=== PATIENT | female | born 1995 | race Hispanic/Latino ===

== ENCOUNTER 2019-01-07 21:26 | Emergency (ER) | payer OTHER ==
[~2019-01-07] VITALS: Ht 167.6 cm; Wt 65.3 kg
--- OUTSIDE RECORDS SUMMARY | 2019-01-07 21:29 | XMS REPORT ---
Author Author [facility] Address Unknown Phone Unavailable Care Team Providers Care Mechanical Integrity Engineer Name Role Phone YOANDY JIMENEZ Unavailable Unavailable FRANTZ CHARLES Unavailable Unavailable Problems This patient has no known problems. Allergies, Adverse Reactions, Alerts This patient has no known allergies or adverse reactions. Medications This patient has no known medications. Results Test Description Test Time Test Comments Text Results Atomic Results Result Comments TACROLIMUS LEVEL 2018-04-19 13:16:00 TACROLIMUS BLOOD (BETHAKER) (test gmpe=691) 5.7 ng/mL 10.0-20.0 RAD, CHEST, 2 [id number] 12:55:00Referring: Dr. Carlos Vargas for Exam:- >transplanted liver - routine screening right upper quadrant discomfortFINAL REPORT TECHNIQUE: Frontal and lateral views of the chest. INDICATION: transplanted liver - routine screening right upper quadrant d iscomfort. COMPARISON: None. FINDINGS: LINES/TUBES: None. LUNGS: The lungs are well inflated and clear. No consolidation or pulmonary edema. PLEURA: No pleural effusion or pneumothorax. HEART AND MEDIASTINUM: The cardiomediastinal silhouet te is within normal limits. SOFT TISSUES AND BONES: However convex curvature of the lower thoracic spine. IMPRESSION:No acute cardiopulmonary abnormalities. Si gned: Dyllan Davenport MDReplia Verified Date/Time: 04/19/2018 12:55:54 Reading Locat ion: OQMT 10th [facility] [place] Radiology Reading Room U/S, ABDOMINAL, WITH [id number] 11:43:00Referring: Dr. Carlos Vargas for Exam:->transplanted liver - portal thrombosis- right upper quandrant discomfortFINAL REPORT TECHNIQUE: Grayscale ultrasound of the abdomen with color Doppler and spectral Doppler ultrasound of the portal/hepatic vasculature. INDICATION: transplanted liver - portal thrombosis- right upper quandrant discomfort. COMPARISON: Ultrasound from 04/01/2017. FINDINGS: LIVER: Smooth liver contour. No focal liver lesions. HEPATIC VASCULATURE: The intrahepatic portal veins are patent. There is retained oral vessels at the hepatic hilum. The hepatic arteries are patent with normal flow velocities, resistive indices, and waveforms. The hepatic veins and confluence are patent. The hepatic arterial resistive indices range from 0.7-0.8. Acceleration time in the proper hepatic artery is 0.05 seconds. There are several right retroperitoneal varices as well as varices in the gallbladder fossa. BILIARY:Gallbladder: No gallstones or sludge. No g allbladder wall thickening, pericholecystic fluid, or distention. Negative sonog raphic Harrell sign.Common bile duct measures 0.4 cm, within normal limits. No in trahepatic biliary ductal dilatation. PANCREAS: Incompletely visualized due to o verlying bowel gas. The partially visualized pancreatic body is normal. SPLEEN: No splenomegaly. The spleen measures 15.4 cm PERITONEUM: No free fluid. KIDNEYS: Normal in size bilaterally. No hydronephrosis. No sonographically evident solid mass lesion. MIDLINE VASCULATURE: The visualized inferior vena cava is patent. The maximum visualized aortic diameter is 1.7 cm. Splenic artery and vein are p atent. IMPRESSION: 1.The resistive index of the proper hepatic artery is mildly elevated, a nonspecific finding. 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 There are prominen t collaterals in the gallbladder fossa and right retroperitoneal region. Signed: Dyllan Davenport MDReport Verified Date/Time: 04/19/2018 11:43:04 Reading Location: [address] Radiology Reading Room W/PLT COUNT & AUTO [id number] 09:52:00* Test Item Value Reference Range Comments WHITE BLOOD CELL COUNT (BEAKER) (test muht=466) 3.8 K/ L 3.5-10.5 RED BLOOD CELL COUNT (BEAKER) (test rybd=310) 4.34 M/ L 3.93-5.22 HEMOGLOBIN (BEAKER) (test ytem=034) 13.1 GM/DL 11.2-15.7 HEMATOCRIT (BEAKER) (test pznz=238) 39.4 % 34.1-44.9 MEAN CORPUSCULAR VOLUME (BEAKER) (test wywh=541) 90.8 fL 79.4-94.8 MEAN CORPUSCULAR HEMOGLOBIN (BEAKER) (test njzy=240) 30.2 pg 25.6-32.2 MEAN CORPUSCULAR HEMOGLOBIN CONC (BEAKER) (test lbzt=491) 33.2 GM/DL 32.2-35.5 RED CELL DISTRIBUTION WIDTH (BEAKER) (test stpg=633) 12.9 % 11.7-14.4 PLATELET COUNT (BEAKER) (test uccr=427) 136 K/CU MM 150-450 MEAN PLATELET VOLUME (BEAKER) (test kiit=711) 10.0 fL 9.4-12.3 NUCLEATED RED BLOOD CELLS (BEAKER) (test ogdg=007) 0 /100 WBC 0-0 NEUTROPHILS RELATIVE PERCENT (BEAKER) (test szsl=900) 54 % LYMPHOCYTES RELATIVE PERCENT (BEAKER) (test qfor=470) 25 % MONOCYTES RELATIVE PERCENT (BEAKER) (test vtaj=585) 9 % EOSINOPHILS RELATIVE PERCENT (BEAKER) (test teqq=116) 11 % BASOPHILS RELATIVE PERCENT (BEAKER) (test mbag=660) 1 % NEUTROPHILS ABSOLUTE COUNT (BEAKER) (test uzkm=507) 2.04 K/ L 1.56-6.13 LYMPHOCYTES ABSOLUTE COUNT (BEAKER) (test gqfb=868) 0.96 K/ L 1.18-3.74 MONOCYTES ABSOLUTE COUNT (BEAKER) (test deyp=763) 0.35 K/ L 0.24-0.36 EOSINOPHILS ABSOLUTE COUNT (BEAKER) (test bmqt=781) 0.40 K/ L 0.04-0.36 BASOPHILS ABSOLUTE COUNT (BEAKER) (test qnxc=879) 0.04 K/ L 0.01-0.08 IMMATURE GRANULOCYTES-RELATIVE PERCENT (BEAKER) (test ejeh=9416) 0 % 0-1 HEPATIC FUNCTION [id number] 09:51:00* Test Item Value Reference Range Comments TOTAL PROTEIN (BEAKER) (test xoum=233) 7.4 gm/dL 6.0-8.3 ALBUMIN (BEAKER) (test vrno=3196) 3.8 g/dL 3.5-5.0 BILIRUBIN TOTAL (BEAKER) (test janx=499) 1.5 mg/dL 0.2-1.2 BILIRUBIN DIRECT (BEAKER) (test foct=060) 0.6 mg/dL 0.1-0.5 ALKALINE PHOSPHATASE (BEAKER) (test utzr=914) 99 U/L 40-150 AST (SGOT) (BEAKER) (test swsb=167) 28 U/L 5-34 ALT (SGPT) (BEAKER) (test vsdn=583) 23 U/L 6-55 BASIC METABOLIC [id number] 09:51:00* Test Item Value Reference Range Comments SODIUM (BEAKER) (test hqlf=954) 136 meq/L 136-145 POTASSIUM (BEAKER) (test zalw=371) 4.2 meq/L 3.5-5.1 CHLORIDE (BEAKER) (test ewrm=153) 106 meq/L 98-107 CO2 (BEAKER) (test pqus=378) 22 meq/L 22-29 BLOOD UREA NITROGEN (BEAKER) (test dkdt=003) 10 mg/dL 7-21 CREATININE (BEAKER) (test sfnu=262) 0.52 mg/dL 0.57-1.25 GLUCOSE RANDOM (BEAKER) (test fyoe=240) 141 mg/dL 70-105 CALCIUM (BEAKER) (test rzhn=649) 9.1 mg/dL 8.4-10.2 EGFR (BEAKER) (test nqli=8969) 145 mL/min/1.73 sq m ESTIMATED GFR IS NOT ACCURATE CREATININE CLEARANCE IN PREDICTING GLOMERULAR FILTRATION RATE. ESTIMATED GFR IS NOT APPLICABLE FOR DIALYSIS PATIENTS. PROTHROMBIN [id number] 09:27:00* Test Item Value Reference Range Comments PROTIME (BEAKER) (test nanh=934) 14.3 seconds 11.7-14.7 INR (BEAKER) (test akdm=490) 1.1 <=5.9 RECOMMENDED COUMADIN/WARFARIN INR THERAPY RANGESSTANDARD DOSE: 2.0 - 3.0 Inclu tiffanie: PROPHYLAXIS for venous thrombosis, systemic embolization; TREATMENT for betty ous thrombosis and/or pulmonary embolus.HIGH RISK: Target INR is 2.5-3.5 for pat ients with mechanical heart valves.TACROLIMUS [id number] 13:54:00* Test Item Value Reference Range Comments TACROLIMUS BLOOD (BEAKER) (test uupl=286) 7.5 ng/mL 10.0-20.0 CBC W/PLT COUNT & AUTO [id number] 11:15:00* Test Item Value Reference Range Comments WHITE BLOOD CELL COUNT (BEAKER) (test cbwr=565) 4.1 K/ L 3.5-10.5 RED BLOOD CELL COUNT (BEAKER) (test omme=420) 4.46 M/ L 3.93-5.22 HEMOGLOBIN (BEAKER) (test nnii=746) 13.5 GM/DL 11.2-15.7 HEMATOCRIT (BEAKER) (test nwps=965) 40.3 % 34.1-44.9 MEAN CORPUSCULAR VOLUME (BEAKER) (test lsow=679) 90.4 fL 79.4-94.8 MEAN CORPUSCULAR HEMOGLOBIN (BEAKER) (test ltgo=197) 30.3 pg 25.6-32.2 MEAN CORPUSCULAR HEMOGLOBIN CONC (BEAKER) (test povs=846) 33.5 GM/DL 32.2-35.5 RED CELL DISTRIBUTION WIDTH (BEAKER) (test clnl=203) 13.2 % 11.7-14.4 PLATELET COUNT (BEAKER) (test zmyw=909) 151 K/CU MM 150-450 MEAN PLATELET VOLUME (BEAKER) (test nrdl=943) 10.1 fL 9.4-12.3 NUCLEATED RED BLOOD CELLS (BEAKER) (test gipv=242) 0 /100 WBC 0-0 NEUTROPHILS RELATIVE PERCENT (BEAKER) (test nnpi=221) 57 % LYMPHOCYTES RELATIVE PERCENT (BEAKER) (test ucsx=886) 24 % MONOCYTES RELATIVE PERCENT (BEAKER) (test ljvj=679) 8 % EOSINOPHILS RELATIVE PERCENT (BEAKER) (test msrr=903) 10 % BASOPHILS RELATIVE PERCENT (BEAKER) (test wune=842) 1 % NEUTROPHILS ABSOLUTE COUNT (BEAKER) (test ardk=643) 2.30 K/ L 1.56-6.13 LYMPHOCYTES ABSOLUTE COUNT (BEAKER) (test aavl=671) 0.98 K/ L 1.18-3.74 MONOCYTES ABSOLUTE COUNT (BEAKER) (test mlkv=382) 0.31 K/ L 0.24-0.36 EOSINOPHILS ABSOLUTE COUNT (BEAKER) (test dqsr=127) 0.41 K/ L 0.04-0.36 BASOPHILS ABSOLUTE COUNT (BEAKER) (test yydi=165) 0.05 K/ L 0.01-0.08 IMMATURE GRANULOCYTES-RELATIVE PERCENT (BEAKER) (test xibi=8089) 1 % 0-1 [id number] 11:09:00* Test Item Value Reference Range Comments PHOSPHORUS (BEAKER) (test xmsv=357) 2.9 mg/dL 2.3-4.7 [id number] 11:09:00* Test Item Value Reference Range Comments MAGNESIUM (BEAKER) (test pfik=891) 1.9 mg/dL 1.6-2.6 BASIC METABOLIC [id number] 11:09:00* Test Item Value Reference Range Comments SODIUM (BEAKER) (test rqqv=564) 139 meq/L 136-145 POTASSIUM (BEAKER) (test amgg=305) 4.4 meq/L 3.5-5.1 CHLORIDE (BEAKER) (test roas=216) 107 meq/L 98-107 CO2 (BEAKER) (test cnso=557) 28 meq/L 22-29 BLOOD UREA NITROGEN (BEAKER) (test aqvq=989) 13 mg/dL 7-21 CREATININE (BEAKER) (test vbdt=040) 0.55 mg/dL 0.57-1.25 GLUCOSE RANDOM (BEAKER) (test mrwa=362) 133 mg/dL 70-105 CALCIUM (BEAKER) (test puec=888) 9.5 mg/dL 8.4-10.2 EGFR (BEAKER) (test rjee=6443) 136 mL/min/1.73 sq m ESTIMATED GFR IS NOT ACCURATE CREATININE CLEARANCE IN PREDICTING GLOMERULAR FILTRATION RATE. ESTIMATED GFR IS NOT APPLICABLE FOR DIALYSIS PATIENTS. HEPATIC FUNCTION [id number] 11:09:00* Test Item Value Reference Range Comments TOTAL PROTEIN (BEAKER) (test wgox=192) 8.2 gm/dL 6.0-8.3 ALBUMIN (BEAKER) (test pwtu=6347) 4.2 g/dL 3.5-5.0 BILIRUBIN TOTAL (BEAKER) (test echc=801) 1.7 mg/dL 0.2-1.2 BILIRUBIN DIRECT (BEAKER) (test hqow=611) 0.7 mg/dL 0.1-0.5 ALKALINE PHOSPHATASE (BEAKER) (test ntjg=921) 115 U/L 40-150 AST (SGOT) (BEAKER) (test kreb=299) 30 U/L 5-34 ALT (SGPT) (BEAKER) (test dcnh=042) 26 U/L 6-55 PROTHROMBIN [id number] 10:54:00* Test Item Value Reference Range Comments PROTIME (BEAKER) (test ldpv=356) 14.0 seconds 11.7-14.7 INR (BEAKER) (test aeno=449) 1.0 <=5.9 RECOMMENDED COUMADIN/WARFARIN INR THERAPY RANGESSTANDARD DOSE: 2.0 - 3.0 Inclu tiffanie: PROPHYLAXIS for venous thrombosis, systemic embolization; TREATMENT for betty ous thrombosis and/or pulmonary embolus.HIGH RISK: Target INR is 2.5-3.5 for pat ients with mechanical heart valves.U/S, ABDOMINAL, WITH [id number] 11:52:00Referring: Dr. Carlos Vargas for Exam:->history of liver transplant and PVTFINAL REPORT TECHNIQUE: Grayscale ultrasound of the abdomen with color Doppler and spectral Doppler ultrasound of the portal/hepatic vasculature. INDICATION: 21-year-old woman with history of liver transplant and portal vein thrombus. COMPARISON: Abdomen ultrasound 04/23/2016. FINDINGS: LIVER: Prior orthotopic liver transportation. Smooth liver contour. Echogenicity is within normal limits. No focal liver lesions. HEPATIC VASCULATURE: Main portal vein measures 0.6 cm in diameter with unchanged suspected cavernous transformation. Portal veins are patent with normal waveform and directionality. Flow velocity in the main portal vein is within normal limits. The hepatic arteries are patent. Resistive index in the proper hepatic artery is slightly elevated at 0.8. Acceleration time in the proper hepatic artery is within normal limits. Resistive indices in the right and left hepatic arteries are within normal limits. The hepatic veins and confluence are patent. BILIARY:Gallbladder: Prior cholecystectomy.Common bile duct measures 0.5 cm, within normal limits. No intrahepatic biliary ductal dilatation. PANCREAS: Visualized portions of the pancreas are unremarkable. SPLEEN: Enlarged, measuring 17.3 cm. PERITONEUM: No free fluid. KIDNEYS: The right kidney measures 8.8 cm on the left kidney measures 9.4 cm. No hydronephrosis. No sonographically evident solid mass lesion. MIDLINE VASCULATURE: The visualized inferior vena cava is patent. The maximum visualized aortic diameter is 1.8 cm. Splenic artery and vein are patent. Collateral vessels adjacent to the spleen. IMPRESSION:Unremarkable appearance of the transplant liver. 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 Splenomegaly. Slightly elevated resistive index in the proper hepatic a rtery, nonspecific. Signed: Michael Blevins MDReport Verified Date/Time: 2017 11:52:03 Reading Location: [address] Radiology Reading Room [facility] signed by: MICHAEL BLEVINS MD on 04/01/2017 11:52 AM HEMOGLOBIN A1C 2017-03-12 14:21:00* Test Item Value Reference Range Comments HEMOGLOBIN A1C (BEAKER) (test vdpl=087) 4.6 % 4.3-6.1 TACROLIMUS [id number] 14:19:00* Test Item Value Reference Range Comments TACROLIMUS BLOOD (BEAKER) (test gmfh=649) 5.9 ng/mL 10.0-20.0 HEPATITIS B SURFACE [id number] 13:54:00* Test Item Value Reference Range Comments HEPATITIS B SURFACE ANTIBODY (BEAKER) (test uatb=593) 715.2 mIU/mL <8.0 [id number] 12:54:00* Test Item Value Reference Range Comments MAGNESIUM (BEAKER) (test razd=760) 1.5 mg/dL 1.6-2.6 BASIC METABOLIC [id number] 12:54:00* Test Item Value Reference Range Comments SODIUM (BEAKER) (test wpzz=730) 138 meq/L 136-145 POTASSIUM (BEAKER) (test rbrg=338) 3.9 meq/L 3.5-5.1 CHLORIDE (BEAKER) (test azse=567) 109 meq/L 98-107 CO2 (BEAKER) (test yiqc=789) 23 meq/L 22-29 BLOOD UREA NITROGEN (BEAKER) (test ylov=606) 10 mg/dL 7-21 CREATININE (BEAKER) (test mjtc=606) 0.46 mg/dL 0.57-1.25 GLUCOSE RANDOM (BEAKER) (test ijpt=852) 112 mg/dL 70-105 CALCIUM (BEAKER) (test bmps=744) 9.0 mg/dL 8.4-10.2 EGFR (BEAKER) (test akrr=0795) 168 mL/min/1.73 sq m ESTIMATED GFR IS NOT ACCURATE CREATININE CLEARANCE IN PREDICTING GLOMERULAR FILTRATION RATE. ESTIMATED GFR IS NOT APPLICABLE FOR DIALYSIS PATIENTS. HEPATIC FUNCTION [id number] 12:54:00* Test Item Value Reference Range Comments TOTAL PROTEIN (BEAKER) (test rkgs=265) 7.9 gm/dL 6.0-8.3 ALBUMIN (BEAKER) (test ibuz=7094) 3.8 g/dL 3.5-5.0 BILIRUBIN TOTAL (BEAKER) (test swdu=939) 1.5 mg/dL 0.2-1.2 BILIRUBIN DIRECT (BEAKER) (test ncoq=940) 0.6 mg/dL 0.1-0.5 ALKALINE PHOSPHATASE (BEAKER) (test qmly=318) 115 U/L 40-150 AST (SGOT) (BEAKER) (test pmdo=186) 30 U/L 5-34 ALT (SGPT) (BEAKER) (test meqd=179) 27 U/L 6-55 GAMMA GLUTAMYL TRANSFERASE (GGT)2017-03-12 12:54:00* Test Item Value Reference Range Comments GAMMA GLUTAMYL TRANSFERASE (BEAKER) (test drbn=742) 40 U/L 9-64 CBC W/PLT COUNT & AUTO [id number] 12:32:00* Test Item Value Reference Range Comments WHITE BLOOD CELL COUNT (BEAKER) (test dfob=300) 3.6 K/ L 3.5-10.5 RED BLOOD CELL COUNT (BEAKER) (test chbh=244) 4.17 M/ L 3.93-5.22 HEMOGLOBIN (BEAKER) (test buak=432) 12.8 GM/DL 11.2-15.7 HEMATOCRIT (BEAKER) (test vihm=013) 37.4 % 34.1-44.9 MEAN CORPUSCULAR VOLUME (BEAKER) (test xpvg=475) 89.7 fL 79.4-94.8 MEAN CORPUSCULAR HEMOGLOBIN (BEAKER) (test xtki=838) 30.7 pg 25.6-32.2 MEAN CORPUSCULAR HEMOGLOBIN CONC (BEAKER) (test xqjk=168) 34.2 GM/DL 32.2-35.5 RED CELL DISTRIBUTION WIDTH (BEAKER) (test frlx=213) 13.1 % 11.7-14.4 PLATELET COUNT (BEAKER) (test lijg=052) 115 K/CU MM 150-450 MEAN PLATELET VOLUME (BEAKER) (test zsoy=274) 10.0 fL 9.4-12.3 NUCLEATED RED BLOOD CELLS (BEAKER) (test kdkz=532) 0 /100 WBC 0-0 NEUTROPHILS RELATIVE PERCENT (BEAKER) (test vfes=286) 54 % LYMPHOCYTES RELATIVE PERCENT (BEAKER) (test syrm=187) 30 % MONOCYTES RELATIVE PERCENT (BEAKER) (test zomn=079) 7 % EOSINOPHILS RELATIVE PERCENT (BEAKER) (test hijj=641) 7 % BASOPHILS RELATIVE PERCENT (BEAKER) (test ncwn=185) 1 % NEUTROPHILS ABSOLUTE COUNT (BEAKER) (test gpam=829) 1.92 K/ L 1.56-6.13 LYMPHOCYTES ABSOLUTE COUNT (BEAKER) (test gatt=899) 1.06 K/ L 1.18-3.74 MONOCYTES ABSOLUTE COUNT (BEAKER) (test ggam=655) 0.26 K/ L 0.24-0.36 EOSINOPHILS ABSOLUTE COUNT (BEAKER) (test kptn=767) 0.25 K/ L 0.04-0.36 BASOPHILS ABSOLUTE COUNT (BEAKER) (test txzz=385) 0.04 K/ L 0.01-0.08 IMMATURE GRANULOCYTES-RELATIVE PERCENT (BEAKER) (test zqyy=9317) 1 % 0-1 EBV-VCA ANTIBODY, [id number] 17:39:00* Test Item Value Reference Range Comments VIKASH-MARTINEZ VCA IGG (BEAKER) (test zfbo=648) Positive EBV-VCA ANTIBODY, [id number] 17:39:00* Test Item Value Reference Range Comments VIKASH-MARTINEZ VCA IGM (BEAKER) (test shsm=666) Negative CMV PCR, [id number] 14:53:00* Test Item Value Reference Range Comments CMV VIRAL LOAD - NEGATIVE (BEAKER) (test itxo=2626) Negative or below the linear range of the assay (<375 copies/mL) Cytomegalovirus (CMV) infection can cause significant disease in immunosuppresse d patients. However, it is common for CMV to manifest as a limited infection whi ch is of no clinical significance in immunosuppressed patients or in healthy ind ividuals.Viral load measurements are helpful to identify clinical CMV infection and to guide the pre-emptive management of antiviral therapy. For treatment of CMV infection due to reactivation in transplant recipients, a threshold between 4,000 and 5,000 copies/mL is suggested. For treatment of primary CMV infection, a lower threshold can be used.CMV infection may also be monitored using weekly serial measurements. Serial measurements of CMV DNA viral load can be evaluated by identifying a 10-fold change, as well as assessing the CMV DNA viral load and the clinical context for each patient.The plasma CMV DNA viral load was detected using quantitative polymerase chain reaction and fluorescent monitoring of a s pecific hybridized probe. Genetic variation and other factors can affect the acc uracy of nucleic acid testing. Therefore, the results should be interpreted in l ight of clinical data. A negative result may not exclude the presence of CMV dis ease.This test was developed and its performance characteristics determined by chayito rosado [facility] Pathology Department, Section of Molecular Patholog y. It has not been cleared or approved by the U.S. Food and Drug Administration (FDA), since FDA approval is not required for clinical use of the test. Validati on was done as required by The Clinical Laboratory Improvement Amendments of 198 8.CBC W/PLT COUNT & AUTO [id number] 13:10:00* Test Item Value Reference Range Comments WHITE BLOOD CELL COUNT (BEAKER) (test uexp=299) 2.7 K/ L 4.0-10.0 RED BLOOD CELL COUNT (BEAKER) (test mezx=198) 3.98 M/ L 4.00-5.00 HEMOGLOBIN (BEAKER) (test uhji=132) 13.2 GM/DL 12.0-15.0 HEMATOCRIT (BEAKER) (test jqwf=423) 37.1 % 36.0-45.0 MEAN CORPUSCULAR VOLUME (BEAKER) (test gmou=935) 93.3 fL 82.0-99.0 MEAN CORPUSCULAR HEMOGLOBIN (BEAKER) (test zvjh=866) 33.2 pg 27.0-33.0 MEAN CORPUSCULAR HEMOGLOBIN CONC (BEAKER) (test rrvs=590) 35.5 GM/DL 32.0-36.0 RED CELL DISTRIBUTION WIDTH (BEAKER) (test qswy=376) 13.1 % 10.3-14.2 PLATELET COUNT (BEAKER) (test stsy=069) 107 K/CU MM 150-430 MEAN PLATELET VOLUME (BEAKER) (test ynef=432) 7.7 fL 6.5-10.5 NUCLEATED RED BLOOD CELLS (BEAKER) (test eoyg=095) 0 /100 WBC 0-0 NEUTROPHILS RELATIVE PERCENT (BEAKER) (test efvg=871) 44 % LYMPHOCYTES RELATIVE PERCENT (BEAKER) (test wcfn=213) 34 % MONOCYTES RELATIVE PERCENT (BEAKER) (test rhly=789) 10 % EOSINOPHILS RELATIVE PERCENT (BEAKER) (test smvr=384) 11 % BASOPHILS RELATIVE PERCENT (BEAKER) (test tdyl=381) 1 % NEUTROPHILS ABSOLUTE COUNT (BEAKER) (test wins=067) 1.17 K/ L 1.80-8.00 LYMPHOCYTES ABSOLUTE COUNT (BEAKER) (test pgpt=969) 0.91 K/ L 1.48-4.50 MONOCYTES ABSOLUTE COUNT (BEAKER) (test gmqe=298) 0.26 K/ L 0.00-1.30 EOSINOPHILS ABSOLUTE COUNT (BEAKER) (test lely=747) 0.30 K/ L 0.00-0.50 BASOPHILS ABSOLUTE COUNT (BEAKER) (test aonm=783) 0.02 K/ L 0.00-0.20 0.00TACROLIMUS [id number] 12:44:00* Test Item Value Reference Range Comments TACROLIMUS BLOOD (BEAKER) (test esmv=860) 8.0 ng/mL 10.0-20.0 ALPHA FETOPROTEIN (AFP), TUMOR [id number] 12:26:00* Test Item Value Reference Range Comments ALPHA-FETOPROTEIN (BEAKER) (test skbo=7767) 4.8 ng/mL <10.0 Effective 12/27/2013: Reference Range ChangeNew: <10.0 Previous: 0.0-8.0 [id number] 11:55:00* Test Item Value Reference Range Comments MAGNESIUM (BEAKER) (test rywz=023) 1.5 mg/dL 1.6-2.6 BASIC METABOLIC [id number] 11:55:00* Test Item Value Reference Range Comments SODIUM (BEAKER) (test aqit=835) 138 meq/L 136-145 POTASSIUM (BEAKER) (test pzpm=168) 3.8 meq/L 3.5-5.1 CHLORIDE (BEAKER) (test wgpp=949) 106 meq/L 98-107 CO2 (BEAKER) (test lidy=293) 23 meq/L 22-29 BLOOD UREA NITROGEN (BEAKER) (test qkji=423) 7 mg/dL 7-21 CREATININE (BEAKER) (test uskq=836) 0.52 mg/dL 0.57-1.25 GLUCOSE RANDOM (BEAKER) (test mayv=794) 96 mg/dL 70-105 CALCIUM (BEAKER) (test nuwu=011) 9.0 mg/dL 8.4-10.2 EGFR (BEAKER) (test hpbm=9317) 147 mL/min/1.73 sq m ESTIMATED GFR IS NOT ACCURATE CREATININE CLEARANCE IN PREDICTING GLOMERULAR FILTRATION RATE. ESTIMATED GFR IS NOT APPLICABLE FOR DIALYSIS PATIENTS. HEPATIC FUNCTION [id number] 11:55:00* Test Item Value Reference Range Comments TOTAL PROTEIN (BEAKER) (test wrzw=118) 8.8 gm/dL 6.0-8.3 ALBUMIN (BEAKER) (test nxlu=8221) 3.5 g/dL 3.5-5.0 BILIRUBIN TOTAL (BEAKER) (test cwno=778) 1.1 mg/dL 0.2-1.2 BILIRUBIN DIRECT (BEAKER) (test mhbc=863) 0.5 mg/dL 0.1-0.5 ALKALINE PHOSPHATASE (BEAKER) (test hsyg=540) 101 U/L 40-150 AST (SGOT) (BEAKER) (test xniq=221) 60 U/L 5-34 ALT (SGPT) (BEAKER) (test hcms=004) 52 U/L 6-55 [id number] 11:55:00* Test Item Value Reference Range Comments AMYLASE (BEAKER) (test osmw=473) 52 U/L 25-125 [id number] 11:55:00* Test Item Value Reference Range Comments LIPASE (BEAKER) (test xwas=541) 27 U/L 8-78 PROTHROMBIN [id number] 11:31:00* Test Item Value Reference Range Comments PROTIME (BEAKER) (test wnqm=694) 14.6 seconds 11.7-14.7 INR (SHAWN) (test hetn=512) 1.2 <=5.9 RECOMMENDED COUMADIN/WARFARIN INR THERAPY RANGESSTANDARD DOSE: 2.0 - 3.0 Inclu tiffanie: PROPHYLAXIS for venous thrombosis, systemic embolization; TREATMENT for betty ous thrombosis and/or pulmonary embolus.HIGH RISK: Target INR is 2.5-3.5 for pat ients with mechanical heart valves.
[2019-01-07] MEDS ORDERED: SODIUM CHLORIDE 0.9% 1000ML 1,000 ML IV SCH ×2 (22:00)
[2019-01-07] MEDS ORDERED: SODIUM CHLORIDE 0.9% 1000ML 2,000 ML ONE (22:04)
[2019-01-07] MEDS ORDERED: LEVOFLOXACIN 750MG/D5W 150ML 150 ML IV SCH (22:30)
[2019-01-07] MEDS ORDERED: PIPER-TAZ 3.375 GM 50 ML IV ONE (22:30)
[2019-01-07] MEDS ORDERED: VANCOMYCIN 1GM/NS 250 ML 250 ML IV ONE (22:30)
[2019-01-07] MEDS ORDERED: LEVOFLOXACIN 750MG/D5W 150ML 150 ML IV ONE (22:43)
[2019-01-07] MEDS ORDERED: PIPER-TAZ 3.375 GM 50 ML ONE (22:44)
--- NOTE | 2019-01-07 23:06 | NUR ---
[facility] NOTIFIED OF [facility]TY [place] OF 1 HOUR PER MD REQUEST [facility] NOTIFED FOR TRANSFER
--- NOTE | 2019-01-07 23:10 | NUR ---
[facility] NOTIFIED OF TRANSFER. ETA 30 MINUTES
--- NOTE | 2019-01-07 23:16 | Diagnostic Imaging Report ---
EXAMINATION: CXR 2 VIEW - HOPD INDICATION: Cough. COMPARISON: None FINDINGS: TUBES and LINES: None. LUNGS: Lungs are well inflated. There is no evidence of pneumonia or pulmonary edema. PLEURA: No pleural effusion or pneumothorax. HEART AND MEDIASTINUM: The cardiomediastinal silhouette is unremarkable. BONES AND SOFT TISSUES: No acute osseous lesion. Soft tissues are unremarkable. UPPER ABDOMEN: No free air under the diaphragm. IMPRESSION: No acute radiographic abnormality. Signed by: Dr. Chelsi Millan MD on 01/07/2019 11:13 PM
[2019-01-07] MEDS ORDERED: IBUPROFEN 200 MG TAB ONE (23:42)
[2019-01-07 23:45] VITALS: BP 138/74
[2019-01-07] MEDS ORDERED: IBUPROFEN 600 MG TAB PO STA (23:47)
--- NOTE | 2019-01-08 00:06 | NUR ---
[facility] STOPPED AFTER INFUSING FOR [address] RE[address] AG[facility]ERA. [facility]
== END 2019-01-07 23:58 | disposition short-term general hospital (02) ==
LOC: FSED 21:26
DX: N30.91 Cystitis, unspecified with hematuria (principal); Z94.4 Liver transplant status
CPT/HCPCS: 71046; 80053; 81003; 81025; 83518; 83605; 85025; 87040; 87086; 87400; 99284; J2543; J7030